=== PATIENT | female | born 2000 | race African-American/Black ===

== ENCOUNTER 2024-01-31 14:23 | Emergency (ER) | payer MEDICAID ==
[~2024-01-31] VITALS: Ht 165.1 cm; Wt 68.0 kg
[2024-01-31 14:42] VITALS: BP 133/86; PULSE 68; RESP 18; TEMP 98.4; O2SAT 100
[2024-01-31] MEDS ORDERED: INSU100I13 SQ (15:25)
== END 2024-01-31 15:37 | disposition home or self-care (01) ==
LOC: ER 14:23
DX: E11.9 Type 2 diabetes mellitus without complications (principal); J45.909 Unspecified asthma, uncomplicated; Z76.0 Encounter for issue of repeat prescription; Z98.890 Other specified postprocedural states
CPT/HCPCS: 99283

== ENCOUNTER 2024-11-23 06:27 | Emergency (ER) | payer MEDICAID, OTHER ==
[~2024-11-23] VITALS: Ht 165.1 cm; Wt 70.8 kg
[~2024-11-23 06:27] MED LIST: INSU100I13 SQ
[2024-11-23 06:33] VITALS: BP 132/86; PULSE 96; RESP 17; TEMP 98; O2SAT 99
== END 2024-11-23 08:59 | disposition home or self-care (01) ==
LOC: ER 06:44
DX: J06.9 Acute upper respiratory infection, unspecified (principal); J45.909 Unspecified asthma, uncomplicated; E11.9 Type 2 diabetes mellitus without complications; Z98.890 Other specified postprocedural states
CPT/HCPCS: 99281